=== PATIENT | female | born 1970 | race Caucasian/White ===

== ENCOUNTER 2021-12-13 09:19 | Outpatient (CLI) | payer OTHER, SELFPAY ==
--- NOTE | ~2021-12-13 | MM_ITS ---
EXAMINATION: MM screening meli BI w sharon HISTORY: Screening TECHNIQUE: Craniocaudal and mediolateral oblique 3-D tomosynthesis images were obtained and synthetic 2-D images were generated. CAD analysis was submitted and interpreted. COMPARISON: No prior studies for comparison. BREAST PARENCHYMAL COMPOSITION: The breasts are heterogenously dense, which may obscure small masses FINDINGS: There are bilateral asymmetries in the upper outer quadrant of both breasts. There are no s uspicious calcifications. IMPRESSION: 1. Bilateral breast asymmetries. 2. Additional mammographic views and possible breast ultrasound are recommended. BI-RADS Category 0: Incomplete: Needs additional imaging evaluation. Reviewed, dictated and finalized at location A. IMPRESSION: 1. Bilateral breast asymmetries. 2. Additional mammographic views and possible breast ultrasound are recommended . BI-RADS Category 0: Incomplete: Needs additional imaging evaluation.
== END 2021-12-13 09:20 | disposition home or self-care (01) ==
PROVIDERS: PCP Physician Assistant; Visit Provider Obstetrics & Gynecology
DX: Z12.31 Encounter for screening mammogram for malignant neoplasm of breast (principal); R92.8 Other abnormal and inconclusive findings on diagnostic imaging of breast
CPT/HCPCS: 77063; 77067

== ENCOUNTER 2021-12-27 12:04 | Outpatient (CLI) | payer OTHER, SELFPAY ==
--- NOTE | ~2021-12-27 | MMUS_ITS ---
EXAMINATION: MM diagnostic meli BI w sharon, US breast BI limited HISTORY: Bilateral mammographic asymmetries on 12/2021 screening mammogram examination TECHNIQUE: Additional 3-D tomosynthesis images of both breasts were performed and synthetic 2-D image s were generated. CAD analysis was submitted and interpreted. High resolution bilateral upper outer a nd lower-outer quadrant breast ultrasound was performed. COMPARISON: 12/2021 bilateral screening mammogram FINDINGS: MAMMOGRAPHIC FINDINGS: Right breast: 7.5 mm circumscribed opacity in the outer mid right breast with halo sign, suggesting benign process, likely cyst (mL Tomosynthesis image 14/48). 4.5 mm circumscribed opacity is noted anteriorly in the upper mid outer right breast (coned compressi on ML Tomosynthesis image 23/56) No suspicious mass or architectural distortion is detected. Left breast: No suspicious mass or architectural distortion is evident. ULTRASOUND: Right breast: 9:00 4 cm from nipple: 5.6 x 6.3 x 7 mm hypoechoic lesion, likely corresponding to the mammographic f inding at 9:00 with halo sign, suggesting benign process. However, on ultrasound the margins appear m ildly irregular and there is suggestion of minimal posterior shadowing. Ultrasound-guided aspiration attempt is recommended. If this lesion does not resolve with aspiration, then immediate ultrasound-gu ided biopsy is recommended. No other significant sonographic finding the lateral half of the right breast. Left breast: 4:00 3 cm from nipple: Parallel circumscribed sonolucency measuring 2.4 x 5.3 x 5.8 mm, with through transmission, consistent with simple cyst No other significant sonographic finding of the lateral half of the left breast is evident. No suspic ious solid lesion or shadowing. IMPRESSION: 7 mm indeterminate hypoechoic lesion of right breast at 9:00 4 cm from nipple; ultrasound-guided biop sy attempt is recommended. If this does not resolve with aspiration Repeat ultrasound-guided biopsy would then be appropriate. BI-RADS category 4, suspicious findings. Reviewed, dictated and finalized at location A. IMPRESSION: 7 mm indeterminate hypoechoic lesion of right breast at 9:00 4 cm from nipple; ultrasound-guided biopsy attempt is recommended. If this does not resolve with aspiration Repeat ultrasound-guided biopsy would then be appropriate. BI-RADS category 4, suspicious findings.
== END 2021-12-27 12:05 | disposition home or self-care (01) ==
LOC: ANHIMG 12:05
PROVIDERS: PCP Physician Assistant; Visit Provider Obstetrics & Gynecology
DX: N64.89 Other specified disorders of breast (principal); R92.8 Other abnormal and inconclusive findings on diagnostic imaging of breast
CPT/HCPCS: 76642; 77062; 77066; G0279

== ENCOUNTER → 2023-07-09 10:50 | Outpatient (CLI) | payer OTHER, SELFPAY ==
--- NOTE | ~2023-07-09 | XR_ITS ---
EXAMINATION: XR chest 2V DATE: 07/09/2023 11:08 INDICATION: Other specified symptoms and signs. TECHNIQUE: Frontal and lateral views of the chest were obtained. COMPARISON: None. FINDINGS: There is no pneumonia, pleural effusion, or pneumothorax. The heart size is normal. IMPRESSION: 1. No acute cardiopulmonary disease. Reviewed, dictated and finalized at location A. [employer]
== END ==
PROVIDERS: PCP Physician Assistant; Visit Provider Physician Assistant
DX: R09.89 Other specified symptoms and signs involving the circulatory and respiratory systems (principal)
CPT/HCPCS: 71046

== ENCOUNTER 2023-07-22 12:36 | Outpatient (CLI) | payer OTHER, SELFPAY ==
--- NOTE | 2023-07-22 | ECHO_ITS ---
Patient Info Name: Fatimah Esteves Age: 53 years : 1970 Gender: Female Ht: 69 in Wt: 190 lbs BSA: 2.07 m2 HR: 94 bpm BP: 141 / 99 mmHg Heart Rhythm: Tachycardia Technical Quality: Good Exam Date: 07/22/2023 12:59 PM Exam Location: Echo Lab Patient Status: Outpatient Admit Date: 07/22/2023 Staff Ordering Physician: ShaheenChelo PA-C House Officer: Angelika Sharpe RDCS Attending Provider: RachaelChelo PA-C Exam Type: CA echo doppler color flow Study Info Indications - locaized edema Complete two-dimensional, color flow and Doppler transthoracic echocardiogram is performed. Summary 1. Complete two-dimensional, color flow and Doppler transthoracic echocardiogram is performed. 2. Left ventricular chamber dimension is normal. 3. Left ventricular systolic function is normal, estimated at 65-70%. 4. The left ventricular diastolic function is grade I diastolic dysfunction. 5. Right ventricular systolic function is normal. 6. No significant valvular disease. Left Ventricle Left ventricular chamber dimension is normal. Left ventricular systolic function is normal, estimated at 65-70%. There is no increased left ventricular wall thickness. The left ventricular diastolic function is grade I diastolic dysfunction. Right Ventricle Right ventricular chamber dimension is normal. Right ventricular systolic function is normal. Left Atria Left atrial chamber dimension is normal. Right Atria Right atrial chamber dimension is normal. Atrial Septum Intact interatrial septum visualized by color flow imaging. Aortic Valve The aortic valve is not well visualized. There is no aortic valve stenosis. There is no aortic valve regurgitation. Pulmonic Valve The pulmonic valve is not well visualized. Mitral Valve There is trace mitral valve regurgitation. Tricuspid Valve There is trace tricuspid valve regurgitation. Pericardium/Pleural There is no pericardial effusion. Inferior Vena Cava Normal inferior vena cava with >50% collapse upon inspiration consistent with normal right atrial pressure, 3 mmHg. Aorta The aortic root size at the sinus of Valsalva is normal. Left Ventricular Outflow Tract Name Value Normal LVOT 2D LVOT Diameter 2.0 cm LVOT Doppler LVOT Peak Gradient 7 mmHg LVOT Mean Gradient 4 mmHg LVOT VTI 23 cm LVOT VTI/AV VTI Ratio 0.7 LVOT Stroke Volume 73 ml LVOT CO 6.8 l/min LVOT CI 3.3 l/min/m2 Pulmonic Valve Name Value Normal RVOT Doppler RVOT Peak Gradient 4 mmHg PV Doppler PV Peak Gradient 3 mmHg Mitral Valve Nam
== END 2023-07-22 12:37 | disposition home or self-care (01) ==
PROVIDERS: PCP Physician Assistant; Visit Provider Physician Assistant
DX: R60.0 Localized edema (principal)
CPT/HCPCS: 93306